=== PATIENT | female | born 1970 | race Caucasian/White ===

== ENCOUNTER 2017-06-20 09:05 | Day surgery (SDC) | payer BC ==
[~2017-06-20 09:05] MED LIST: CEFAZOLIN 1 GM INJ; CEFAZOLIN 2 GM/50 ML (PMX) 50 ML IVPB; LIDOCAINE 2% (SDV) 5 ML INJ; SOD CHLORIDE 0.9% 1,000 ML IV
[2017-06-20] MEDS ORDERED: PROPOFOL 100 ML (11:40)
[2017-06-20] MEDS ORDERED: ROCURONIUM 50 MG INJ (11:40)
[2017-06-20] MEDS ORDERED: LABETALOL HCL 20MG INJ IV (12:00)
[2017-06-20] MEDS ORDERED: MIDAZOLAM 1 MG/ML 2 ML INJ IV (12:00)
[2017-06-20] MEDS ORDERED: FENTAnyl 50 MCG/ML VIAL IV ×3 (12:00)
[2017-06-20] MEDS ORDERED: MEPERIDINE 25 MG INJ IV (12:00)
[2017-06-20] MEDS ORDERED: HYDROmorphONE (0.2 MG/ML) 10ML SYG IV ×2 (12:00)
[2017-06-20] MEDS ORDERED: ALBUTEROL 0.083% (NEB) 2.5 MG/3 ML AMP HHN (12:00)
[2017-06-20] MEDS ORDERED: EPHEDrine SULFATE 50 MG/5 ML SYG IV (12:00)
[2017-06-20] MEDS ORDERED: hydrALAzine 20 MG INJ IV (12:00)
[2017-06-20] MEDS ORDERED: ONDANSETRON 4 MG INJ IV (12:00)
[2017-06-20] MEDS ORDERED: OXYCODONE/ACETAMINOPHEN (5/325) TAB PO ×2 (12:00)
[2017-06-20] MEDS ORDERED: DEXAMETHASONE 4 MG/ML 1 ML INJ (12:18)
[2017-06-20] MEDS ORDERED: ONDANSETRON 4 MG INJ (12:19)
[2017-06-20] MEDS ORDERED: KETOROLAC 30 MG INJ (12:20)
[2017-06-20] MEDS: BUPIVACAINE 0.25% (MPF) 30 ML INJ (12:23)
[2017-06-20] MEDS ORDERED: SUGAMMADEX SODIUM 200 MG/2 ML VIAL IV (12:23)
[2017-06-20] MEDS: KETOROLAC 30 MG INJ IV (13:34)
[2017-06-20] MEDS: DIPHENHYDRAMINE 50 MG INJ IV (13:35)
[2017-06-20] MEDS: METOCLOPRAMIDE 10 MG INJ IV (13:35)
[2017-06-20] MEDS: HYDROmorphONE (0.2 MG/ML) 10ML SYG IV ×2 (13:36→14:16)
== END 2017-06-20 15:27 | disposition home or self-care (01) ==
LOC: SDS 09:05
DX: K80.10 Calculus of gallbladder with chronic cholecystitis without obstruction (principal); I10 Essential (primary) hypertension
CPT/HCPCS: 47562; 84703; 88304